=== PATIENT | female | born 1970 | race Caucasian/White ===

== ENCOUNTER 2024-04-29 15:38 | Outpatient (CLI) | payer OTHER, SELFPAY ==
--- NOTE | 2024-04-29 13:35 | DI.RAD_ITS ---
Exam(s) XR KNEE LT 2V AP,LAT EXAM: XR KNEE LT 2V AP,LAT INDICATION: LEFT TIBIAL PLATEAU FX. COMPARISON: CR XR KNEE LEFT 4 OR MORE VIEWS from 04/12/2024 TECHNIQUE: 2D digital imaging was performed. Two views. FINDINGS: Stable appearance of lateral tibial plateau fracture. The joint effusion has decreased since the pre vious exam. DATA REPOSITORY: RADIATION DOSE DELIVERED:
== END 2024-04-29 15:39 | disposition home or self-care (01) ==
LOC: DIORS 15:38
PROVIDERS: Visit Provider Student in an Organized Health Care Education/Training Program
DX: S82.142A Displaced bicondylar fracture of left tibia, initial encounter for closed fracture (principal)
CPT/HCPCS: 73560

== ENCOUNTER 2024-05-13 13:52 | Outpatient (CLI) | payer OTHER, SELFPAY ==
--- NOTE | 2024-05-13 13:30 | DI.RAD_ITS ---
Exam(s) XR KNEE LT 2V AP,LAT EXAM: XR KNEE LT 2V AP,LAT INDICATION: F/U L TIBIAL PLATEAU. COMPARISON: CR XR KNEE LT 2V AP,LAT from 04/29/2024 TECHNIQUE: 2D digital imaging was performed. Two views. FINDINGS: Stable appearance of lateral tibial plateau fracture. Mild underlying degenerative changes. No new abnormalities. DATA REPOSITORY: RADIATION DOSE DELIVERED:
== END 2024-05-13 13:53 | disposition home or self-care (01) ==
LOC: DIORS 13:52
PROVIDERS: Visit Provider Student in an Organized Health Care Education/Training Program
DX: S82.142A Displaced bicondylar fracture of left tibia, initial encounter for closed fracture (principal)
CPT/HCPCS: 73560

== ENCOUNTER 2024-06-03 15:52 | Outpatient (CLI) | payer OTHER, SELFPAY ==
--- NOTE | 2024-06-03 15:30 | DI.RAD_ITS ---
Exam(s) XR KNEE LT 2V AP,LAT EXAM: XR KNEE LT 2V AP,LAT CLINICAL HISTORY: F/U L TIB PLATEAU FX. TECHNIQUE: 2D digital imaging was performed of the left knee. Three images were obtained. AP and l ateral views were obtained. COMPARISON: CT CT KNEE LEFT WO CONTRAST from 04/12/2024 CR XR KNEE LT 2V AP,LAT from 05/13/2024 FINDINGS: BONES: There is again seen a lateral tibial plateau fracture. This is unchanged. No new fracture i s seen. No bony destructive lesion is seen. JOINTS: Tricompartment degenerative changes are present characterized by joint space narrowing and os teophytes. There is a small joint effusion. No loose body. SOFT TISSUE: Normal. IMPRESSION: Stable appearance of the lateral tibial plateau fracture. DATA REPOSITORY: RADIATION DOSE DELIVERED:
== END 2024-06-03 15:53 | disposition home or self-care (01) ==
LOC: DIORS 15:52
PROVIDERS: Visit Provider Student in an Organized Health Care Education/Training Program
DX: S82.142D Displaced bicondylar fracture of left tibia, subsequent encounter for closed fracture with routine healing (principal); X58.XXXD Exposure to other specified factors, subsequent encounter
CPT/HCPCS: 73560